=== PATIENT | female | born 1960 | race Caucasian/White ===

== ENCOUNTER 2018-10-17 13:56 | Emergency (ER) | payer MEDICAID ==
[~2018-10-17] VITALS: Ht 170.2 cm; Wt 104.5 kg
[~2018-10-17 13:56] MED LIST: ATIVAN0.5 MG PO; GABAPENTIN100 MG PO; HYDROCODONE-APA1 TAB PO; MOBIC7.5 MG PO; NEURONTIN 300300 MG PO; NITROSTAT0.4 MG SL; OMEPRAZOLE20 M1 PO; SEROQUEL300 MG PO; ULTRAM50 MG PO; ZOLOFT100 MG PO; ZOLOFT25 MG PO
[2018-10-17 14:09] VITALS: Ht 170.2 cm; Wt 104.5 kg
[2018-10-17] MEDS ORDERED: NORVASC10 MG PO (14:13)
[2018-10-17 15:14] LABS: BASOPHILS 0.1 % (0-2); EOSINOPHILS 0.9 % (0-7); HEMATOCRIT 39.7 % (36.0-48.0); HEMOGLOBIN 13.4 g/dL (12-16); IMMATURE GRANULOCYTES 0.2 % (0-5); LYMPHOCYTES 26.2 % (15-50); MCHC 33.8 g/dL (31.0-37.0); MCV 91.9 fL (80.0-100.0); MEAN PLATELET VOLUME 10.6 fL (7.4-10.4); MONOCYTES 9.4 % (2-11); NEUTROPHILS 63.2 % (40-80); RBC 4.32 10x6/uL (4.00-5.40); RDW 13.8 % (11.5-14.5); WBC 9.1 10x3/uL (4.8-10.8)
[2018-10-17 15:32] LABS: ALKALINE PHOSPHATASE 77 U/L (46-116); ALT (SGPT) 22 U/L (10-68); BILIRUBIN - TOTAL 0.21 mg/dL (0.2-1.3); CALC OSMOLALITY 267 mosm/kg (275-300); CALCIUM 9.2 mg/dL (8.5-10.1); CHLORIDE - SERUM 99 mmol/L (98-107); GLUCOSE 103 mg/dL (74-106); POTASSIUM - SERUM 3.7 mmol/L (3.5-5.1); PROTEIN - SERUM 7.1 g/dL (6.4-8.2); SODIUM 135 mmol/L (136-145); UREA NITROGEN 8 mg/dL (7-18); eGFR NON AFRICAN AMERICAN 61 mL/min (90-120)
[2018-10-17 15:50] LABS: PLATELET COUNT 255 10x3/uL (130-400)
[2018-10-17 15:53] LABS: CKMB 1.9 U/L (0.0-3.6); CREATINE KINASE 157 UL (21-215)
[2018-10-17 15:54] LABS: TROPONIN-I < 0.017 ng/mL (0.000-0.060)
[2018-10-17] MEDS ORDERED: PREDNISONE20 MG PO (17:08)
[2018-10-17 17:09] VITALS: BP 144/82
== END 2018-10-17 17:10 | disposition home or self-care (01) ==
LOC: D.ER 13:56
PROVIDERS: Family Medicine
DX: J06.9 Acute upper respiratory infection, unspecified (principal); R09.89 Other specified symptoms and signs involving the circulatory and respiratory systems; R05 Cough; Z86.73 Personal history of transient ischemic attack (TIA), and cerebral infarction without residual deficits; I10 Essential (primary) hypertension; F17.200 Nicotine dependence, unspecified, uncomplicated

== ENCOUNTER 2019-02-06 22:14 | Emergency (ER) | payer MEDICAID ==
[~2019-02-06] VITALS: Ht 170.2 cm; Wt 102.3 kg
[~2019-02-06 22:14] MED LIST changes: +NORVASC10 MG PO; +PREDNISONE20 MG PO
[2019-02-06 22:28] VITALS: Ht 170.2 cm; Wt 102.3 kg
[2019-02-07] MEDS ORDERED: CYCLOBENZAPRINE10 MG PO (01:11)
[2019-02-07 01:35] VITALS: BP 138/69
== END 2019-02-07 01:35 | disposition home or self-care (01) ==
LOC: D.ER 22:14
DX: M54.41 Lumbago with sciatica, right side (principal)

== ENCOUNTER → 2019-03-09 19:26 | Outpatient (CLI) | payer MEDICAID ==
[~2019-03-09 19:26] MED LIST changes: +CYCLOBENZAPRINE10 MG PO
== END | disposition home or self-care (01) ==
LOC: D.LABREF 19:26
DX: B18.2 Chronic viral hepatitis C (principal)

== ENCOUNTER → 2019-03-12 14:17 | Outpatient (CLI) | payer MEDICAID ==
[2019-03-12 14:59] LABS: BASOPHILS 0.3 % (0-2); EOSINOPHILS 0.8 % (0-7); HEMATOCRIT 41.8 % (36.0-48.0); HEMOGLOBIN 14.1 g/dL (12-16); IMMATURE GRANULOCYTES 0.1 % (0-5); LYMPHOCYTES 30.6 % (15-50); MCH 30.5 pg (26.0-34.0); MCHC 33.7 g/dL (31.0-37.0); MCV 90.5 fL (80.0-100.0); MEAN PLATELET VOLUME 10.5 fL (7.4-10.4); MONOCYTES 5.9 % (2-11); NEUTROPHILS 62.3 % (40-80); PLATELET COUNT 223 10x3/uL (130-400); RBC 4.62 10x6/uL (4.00-5.40); RDW 14.3 % (11.5-14.5); WBC 9.2 10x3/uL (4.8-10.8)
[2019-03-12 15:15] LABS: ALBUMIN 3.2 g/dL (3.4-5.0); ANION GAP 14.9 mmol/L (8-16); BILIRUBIN - TOTAL 0.38 mg/dL (0.2-1.3); CALCIUM 8.4 mg/dL (8.5-10.1); CARBON DIOXIDE 25.7 mmol/L (21.0-32.0); CREATININE - SERUM 0.9 mg/dL (0.6-1.3); POTASSIUM - SERUM 4.6 mmol/L (3.5-5.1); PROTEIN - SERUM 6.5 g/dL (6.4-8.2)
[2019-03-15 09:07] LABS: HCVGENO - HEP C QUANT HCV Not Detected IU/mL (())
== END | disposition home or self-care (01) ==
LOC: D.LAB 14:17
PROVIDERS: Nurse Practitioner Acute Care
DX: B18.2 Chronic viral hepatitis C (principal)